=== PATIENT | male | born 1945 | race Caucasian/White ===

== ENCOUNTER → 2020-06-15 | Outpatient (CLI) | payer OTHER ==
[~2020-06-15] MED LIST: 'PARAFON FORTE500 M1 PO; ALBUTEROL4 MG PO; HYDROCODONE BIT1 T11 PO; LOVASTATIN10 MG PO; NAPROSYN500 MG PO; NORVASC5 MG PO; OMEPRAZOLE MAGN20 MG PO; PRINIVIL10 MG PO; SPIRIVA18 MCG PO
[2020-06-15 09:17] LABS: BASO # 0.1 10*3/uL (0.0-0.1); BASO % 0.8 % (0.0-1.0); EOS # 0.7 10*3/uL (0.0-0.4); HEMATOCRIT 42.3 % (42.0-52.0); LYMPH # 2.7 10*3/uL (1.3-4.4); LYMPH % 26.2 % (27.0-41.0); MEAN CELL VOLUME 88.1 fl (80.0-94.0); MEAN CORPUSCULAR HGB 29.8 pg (27.0-31.0); MEAN CORPUSCULAR HGB CONC 33.8 g/dl (33.0-37.0); MEAN PLATELET VOLUME 8.4 fl (9.6-12.3); MONO # 1.3 10*3/uL (0.1-1.0); MONO % 12.8 % (3.0-9.0); NEUT # 5.5 10*3/uL (2.3-7.9); PLATELET COUNT AUTOMATED 346 10*3/uL (130-400); RED CELL DISTRI WIDTH 12.8 % (0-14.5); WHITE BLOOD COUNT 10.5 10*3/uL (4.8-10.8)
[2020-06-15 09:48] LABS: ALBUMIN 3.8 gm/dl (3.1-4.5); BUN 21 mg/dl (7-24); CHLORIDE 100 mmol/L (98-107); POTASSIUM 4.3 mmol/L (3.5-5.1); SGOT/AST 18 IU/L (3-35); SODIUM 134 mmol/L (136-145)
[2020-06-15 09:51] LABS: ALKALINE PHOSPHATASE 76 U/L (45-117); CHOLESTEROL 157 mg/dL (<200); CREATININE 1.35 mg/dL (0.70-1.30); HDL CHOLESTEROL 53 mg/dl (40-60); LDL CHOLESTEROL 81 mg/dL (9-159); SGPT/ALT 32 U/L (12-78); TRIGLYCERIDES 116 mg/dl (<150); VLDL CHOLESTEROL 23 mg/dL (6-40)
== END | disposition home or self-care (01) ==
LOC: LAB 08:48
PROVIDERS: ATTEND Nurse Practitioner Family
DX: E78.5 Hyperlipidemia, unspecified (principal); I10 Essential (primary) hypertension

== ENCOUNTER → 2020-06-23 | Outpatient (CLI) | payer OTHER | END | disposition home or self-care (01) | LOC: LAB 08:04 | PROVIDERS: ATTEND Nurse Practitioner Family | DX: R73.03 Prediabetes (principal) ==

== ENCOUNTER → 2020-08-01 | Outpatient (CLI) | payer OTHER, MEDICARE | END | disposition home or self-care (01) | LOC: COVID19 13:31 | PROVIDERS: ATTEND Internal Medicine | DX: Z20.828 Contact with and (suspected) exposure to other viral communicable diseases (principal) ==

== ENCOUNTER → 2020-12-01 | Outpatient (CLI) | payer OTHER ==
[2020-12-01 11:51] LABS: ALBUMIN 3.8 gm/dl (3.1-4.5); ALKALINE PHOSPHATASE 86 U/L (45-117); BUN 13 mg/dl (7-24); CHLORIDE 103 mmol/L (98-107); CREATININE 1.06 mg/dL (0.70-1.30); POTASSIUM 4.5 mmol/L (3.5-5.1); SGOT/AST 17 IU/L (3-35); SGPT/ALT 39 U/L (12-78); SODIUM 135 mmol/L (136-145); TOTAL PROTEIN 7.8 gm/dL (6.4-8.2)
== END | disposition home or self-care (01) ==
LOC: LAB 10:12
PROVIDERS: ATTEND Nurse Practitioner Family
DX: I10 Essential (primary) hypertension (principal)